=== PATIENT | male | born 2000 | race Caucasian/White ===

== ENCOUNTER 2023-07-23 17:40 | Emergency (ER) | payer OTHER ==
[~2023-07-23] VITALS: Ht 175.3 cm; Wt 75.0 kg
[2023-07-23] MEDS ORDERED: DOXY-354 PO (18:54)
[2023-07-23] MEDS: AZITHROMYCIN 500 MG TABLET PO ONE (19:19)
[2023-07-23] MEDS: LIDOCAINE/PF 1% 2 ML VIAL IM ONE (19:20)
[2023-07-23] MEDS: CefTRIAXone SODIUM 1 GM/VIAL IM ONE (19:20)
[2023-07-23 19:52] VITALS: BP 120/76; PULSE 78; RESP 18; TEMP 98.6
== END 2023-07-23 19:53 | disposition home or self-care (01) ==
LOC: EMS 17:42
DX: A74.9 Chlamydial infection, unspecified (principal)
CPT/HCPCS: 99283; 96372; J0696; J3490; Q9967